=== PATIENT | male | born 1980 | race Caucasian/White ===

== ENCOUNTER 2018-09-12 23:57 | Emergency (ER) | payer MEDICAID ==
[2018-09-13 00:13] VITALS: RESP 18; O2SAT 99
[2018-09-13] MEDS ORDERED: Albuterol-Ipratrop 3 mg / 0.5 (3 ml) UD INH STA (01:19)
[2018-09-13] MEDS ORDERED: Albuterol-Ipratrop 3 mg / 0.5 (3 ml) UD ONE (01:37)
[2018-09-13 01:59] LABS: BASO % 0.8 % (0.0-2.0); EOS # 0.2 K/uL (0.0-0.7); EOS % 3.1 % (0.0-4.0); HEMOGLOBIN 14.6 g/dL (12.0-18.0); LYMPH # 1.5 K/uL (1.0-4.3); MEAN CELL VOLUME 94.2 fl (80.0-94.0); MEAN CORPUSCULAR HEMOGLOBIN 30.6 pg (27.0-31.0); MEAN CORPUSCULAR HGB CONC 32.5 g/dL (33.0-37.0); MEAN PLATELET VOLUME 8.7 fl (7.2-11.7); MONO # 0.5 K/uL (0.0-0.8); MONO % 9.9 % (0.0-10.0); NEUT # 2.9 K/uL (1.8-7.0); NEUT % 57.2 % (50.0-75.0); NRBC % 0.1 % (0.0-0.0); RBC 4.78 Mil/uL (4.40-5.90); RED CELL DISTRIBUTION WIDTH 14.1 % (11.5-14.5); WHITE BLOOD COUNT 5.1 K/uL (4.8-10.8)
[2018-09-13 02:07] LABS: ALB/GLOB RATIO 1.3 (1.0-2.1); ALBUMIN 4.2 g/dL (3.5-5.0); ALT/SGPT 41 U/L (21-72); AST/SGOT 26 U/L (17-59); BLOOD UREA NITROGEN 10 mg/dl (9-20); CALCIUM 9.2 mg/dL (8.4-10.2); GFR NON-AFRICAN AMERICAN > 60
[2018-09-13 02:23] LABS: BARBITURATES, UR NEGATIVE (NEGATIVE); BENZODIAZEPINES, UR NEGATIVE (NEGATIVE); OPIATES, UR NEGATIVE (NEGATIVE); PHENCYCLIDINE, UR NEGATIVE (NEGATIVE)
--- NOTE | 2018-09-13 04:04 | ED PDOC ---
HPI: SOB/CHF/COPD Time Seen by Provider: 09/13/18 00:55 Chief Complaint (Nursing): Shortness Of Breath History Per: Patient Additional Complaint(s): Pt. c/o dyspnea occuring only when he walks without chest pain x 2 days. Reports no alleviating factors. States symptoms resolve spontaneously. Denies fever, cough, hemoptysis, PND, leg pain, hx of DVT or PE, recent surgery, recent prolonged limb immobilization, illicit drug use. Past Medical History Reviewed: Historical Data, Nursing Documentation, Vital Signs Vital Signs: Last Vital Signs Temp 97.8 F 09/13/18 00:10 Pulse 58 L 09/13/18 00:10 Resp 18 09/13/18 01:45 BP 130/82 09/13/18 00:10 Pulse Ox 99 09/13/18 00:10 - Medical History PMH: Sleep Apnea Denies: Deep Vein Thrombosis, HTN, Hypercholesterolemia, Hyperlipidemia, Pulmonary Embolism - Surgical History Surgical History: No Surg Hx - Family History Family History: States: No Known Family Hx - Social History Drugs: Denies - Immunization History Hx Tetanus Toxoid Vaccination: No Hx Influenza Vaccination: No Hx Pneumococcal Vaccination: No - Home Medications Home Medications: Ambulatory Orders Medication Instructions Recorded Acetaminophen [Tylenol 325mg tab] 650 mg PO Q6 #30 tab 07/31/18 Albuterol HFA [Ventolin HFA 90 2 puff IH [id number] PRN #120 puff 09/13/18 mcg/actuation (8 g)] - Allergies Allergies/Adverse Reactions: Allergies Allergy/AdvReac Type Severity Reaction Status Date / Time No Known Allergies Allergy Verified 07/31/18 15:59 Wells Criteria for PE - Wells Criteria for Pulmonary Embolism Clinical Signs and Symptoms of DVT: No P.E is #1 Diagnosis, or Equally Likely: No Heart Rate >100: No Immobilization at least 3 days;Surgery previous 4 weeks: No Previous, objectively diagnosed PE or DVT: No Hemoptysis: No Malignancy w/treatment within 6 months, or palliative: No Total Score: 0 Review of Systems ROS Statement: Except As Marked, All Systems Reviewed And Found Negative Respiratory: Positive for: Shortness of Breath Physical Exam - Physical Exam Appears: Positive for: Well, Non-toxic, No Acute Distress Skin: Positive for: Normal Color, Warm. Negative for: Rash Eye Exam: Positive for: Normal appearance Cardiovascular/Chest: Positive for: Regular Rate, Rhythm Respiratory: Positive for: Normal Breath Sounds. Negative for: Respiratory Distress Gastrointestinal/Abdominal: Positive for: Soft. Negative for: Tenderness Extremity: Negative for: Calf Tenderness (b/l) Neurological/Psych: Positive for: Awake, Alert, Oriented (x3) - Laboratory Results Result Diagrams: 09/13/18 01:55 09/13/18 01:55 Lab Results: D-Dimer, Quantitative < 200 ng/mlDDU (0-230) 09/13/18 01:55 Troponin I < 0.0120 ng/mL (0.00-0.120) 09/13/18 01:55 Total Bilirubin 2.8 mg/dl (0.2-1.3) H 09/13/18 01:55 AST 26 U/L (17-59) 09/13/18 01:55 ALT 41 U/L (21-72) 09/13/18 01:55 Alkaline Phosphatase 64 U/L (38-126) 09/13/18 01:55 Total Protein 7.6 G/DL (6.3-8.2) 09/13/18 01:55 Albumin 4.2 g/dL (3.5-5.0) 09/13/18 01:55 Globulin 3.4 gm/dL (2.2-3.9) 09/13/18 01:55 Albumin/Globulin Ratio 1.3 (1.0-2.1) 09/13/18 01:55 - ECG ECG: Positive for: Interpreted By Nh ECG Rhythm: Positive for: Sinus Bradycardia. Negative for: ST/T Changes Rate: 58 O2 Sat by Pulse Oximetry: 99 - Radiology X-Ray: Interpreted by Nh (CXR) X-Ray Interpretation: No Acute Disease - Progress ED Course And Treament: Labs, albuterol neb, CXR, EKG ordered. On re-evaluation, pt. reports good relief of dyspnea. Pt. in no distress. Informed of results. Advised to f/u with [facility] for further evaluation but is to return to ED immediately if symptoms worsen. Disposition - Clinical Impression Clinical Impression: Dyspnea - Patient ED Disposition Is Patient to be Admitted: No - Disposition Referrals: [facility] [Outside] Disposition: Routine/Home Disposition Time: 04:02 Condition: IMPROVED Additional Instructions: FOLLOW UP WITH YOUR DOCTOR FOR FURTHER EVALUATION RETURN TO ED IMMEDIATELY IF SYMPTOMS WORSEN MODESTA GARCIA, thank you for letting us take care of you today. Your provider was Debby Srinivasan MD and you were treated for DIFFICULTY BREATHING. The emergency medical care you received today was directed at your acute symptoms. If you were prescribed any medication, please fill it and take as directed. It may take several days for your symptoms to resolve. Return to the Emergency Department if your symptoms worsen, do not improve, or if you have any other problems. Please contact your doctor or call one of the physicians/clinics you have been referred to that are listed on the Patient Visit Information form that is included in your discharge packet. Bring any paperwork you were given at discharge with you along with any medications you are taking to your follow up visit. Our treatment cannot replace ongoing medical care by a primary care provider outside of the emergency department. Thank you for allowing the [facility] team to be part of your care today. If you had an X-Ray or CT scan: A Radiologist will review the ED reading if any change in treatment is needed we will contact you. If you had a blood, urine, or wound culture: It will take several days for the results, if any change in treatment is needed we will contact you. If you had an STI test: It will take 48 hours for the results. Please call after 1 week if you have not heard back. Prescriptions: Albuterol HFA [Ventolin HFA 90 mcg/actuation (8 g)] 2 puff IH [id number] PRN #120 puff PRN Reason: Wheezing Instructions: Shortness of Breath (Dyspnea) (DC) Forms: [employer] (Kiswahili) Print Language: LUXEMBOURGISH
[2018-09-13 05:04] VITALS: BP 124/76; TEMP 97.7
[2018-09-13 06:26] VITALS: PULSE 58
--- NOTE | 2018-09-13 08:42 | RAD ---
Date of service: 09/13/2018 HISTORY: cough COMPARISON: No prior. TECHNIQUE: Chest PA and lateral views FINDINGS: LUNGS: No active pulmonary disease. PLEURA: No significant pleural effusion identified. No pneumothorax apparent. CARDIOVASCULAR: No aortic atherosclerotic calcification present. Normal cardiac size. No pulmonary vascular congestion. OSSEOUS STRUCTURES: No significant abnormalities. VISUALIZED UPPER ABDOMEN: Normal. OTHER FINDINGS: None. IMPRESSION: No acute cardiopulmonary disease appreciated.
--- NOTE | 2018-09-13 09:04 | CARD ---
APPROVED REPORT Date of service: 09/13/2018 EKG Measurement Heart [id number] <Conclusion> Sinus bradycardia Otherwise normal ECG
== END 2018-09-13 05:00 | disposition home or self-care (01) ==
LOC: H.ER 23:57
DX: R06.03 Acute respiratory distress (principal); J44.9 Chronic obstructive pulmonary disease, unspecified; Z79.899 Other long term (current) drug therapy

== ENCOUNTER 2018-09-25 03:38 | Emergency (ER) | payer MEDICAID, OTHER ==
[2018-09-25 04:08] VITALS: PULSE 64; RESP 18; TEMP 98.6; O2SAT 99
[2018-09-25 04:14] VITALS: BP 152/98
--- NOTE | 2018-09-25 05:01 | ED PDOC ---
HPI: Psych/Substance Abuse Time Seen by Provider: 09/25/18 03:54 Chief Complaint (Nursing): Psychiatric Evaluation Chief Complaint (Provider): depression History Per: Patient History/Exam Limitations: no limitations Onset/Duration Of Symptoms: Days Modifying Factor(s): None Additional Complaint(s): 38 yo M h/o HTN and sleep apnea presents to ED via EMS for 3weeks of depression. He reports he recently became homeless and since has been depressed He states he is unsure if he has been in the past. Pt currently denies SI/HI, visual or auditory hallucinations. Pt denies any other complaints at this time. Pt denies drug or alcohol use PMD: [facility] Past Medical History Reviewed: Historical Data, Nursing Documentation, Vital Signs Vital Signs: Last Vital Signs Temp 98.6 F 09/25/18 04:03 Pulse 64 09/25/18 04:03 Resp 18 09/25/18 04:03 BP 152/98 H 09/25/18 04:03 Pulse Ox 99 09/25/18 04:03 - Medical History PMH: HTN, Sleep Apnea Denies: Deep Vein Thrombosis, Hypercholesterolemia, Hyperlipidemia, Pulmonary Embolism - Family History Family History: States: Unknown Family Hx - Social History Alcohol: None Drugs: Denies - Immunization History Hx Tetanus Toxoid Vaccination: No Hx Influenza Vaccination: No Hx Pneumococcal Vaccination: No - Home Medications Home Medications: Ambulatory Orders Medication Instructions Recorded Acetaminophen [Tylenol 325mg tab] 650 mg PO Q6 #30 tab 07/31/18 Albuterol HFA [Ventolin HFA 90 2 puff IH [id number] PRN #120 puff 09/13/18 mcg/actuation (8 g)] - Allergies Allergies/Adverse Reactions: Allergies Allergy/AdvReac Type Severity Reaction Status Date / Time No Known Allergies Allergy Verified 09/25/18 04:08 Review of Systems Constitutional: Negative for: Fever Cardiovascular: Negative for: Chest Pain Respiratory: Negative for: Shortness of Breath Neurological: Negative for: Weakness Psych: Positive for: Depression. Negative for: Suicidal ideation Physical Exam - Reviewed Nursing Documentation Reviewed: Yes - Physical Exam Comments: GENERALIZED APPEARANCE: Patient is AAO x 3, in no acute distress. eating a sandwich SKIN: Warm, dry; (-) cyanosis. HEAD: (-) scalp swelling, (-) scalp tenderness. EYES: (-) conjunctival pallor, (-) scleral icterus, (-) nystagmus. ENMT: Mucous membranes moist. Airway patent: (-) stridor. NECK: (-) tenderness, (-) stiffness, (-) lymphadenopathy. CHEST AND RESPIRATORY: (-) rales, (-) rhonchi, (-) wheezes; breath sounds equalbilaterally. HEART AND CARDIOVASCULAR: (-) irregularity; (-) murmur, (-) gallop. ABDOMEN AND GI: Soft; (-) tenderness. EXTREMITIES: (-) deformity. NEURO AND PSYCH: Mental status as above, (-) apparent hallucinations ordelus ions. Affect: flat. Memory: fully intact last dipper grossly intact;Pupils reactive; (-) facial asymmetry; tongue anduvula midline. Strength: Symmetric. - ECG O2 Sat by Pulse Oximetry: 99 Medical Decision Making Medical Decision Makin initial eval 38 yo M with depression d/t newly being homeless -- crisis eval -- pt with elevated BP, asymptomatic at this time, reports he has not been taking his BP meds 0558 pt seen and cleared by dr parth cottrell, diagnosis adjustment disorder pt is stable for dc discussed diagnosis, treatment, return precautions and f/u with pt who is understanding, in agreement and stable for dc Disposition - Clinical Impression Clinical Impression: Adjustment disorder - Patient ED Disposition Is Patient to be Admitted: No Counseled Patient/Family Regarding: Studies Performed, Diagnosis, Need For Followup - Disposition Referrals: [facility] [Outside] Disposition: Routine/Home Disposition Time: 06:00 Condition: STABLE Additional Instructions: Thank you for letting us take care of you today. You were treated for adjustment disorder. The emergency medical care you received today was directed at your acute symptoms. If you were prescribed any medication, please fill it and take as directed. It may take several days for your symptoms to resolve. Return to the Emergency Department if your symptoms worsen, do not improve, or if you have any other problems. Please contact your doctor in 2 days for re-evaluation and follow up / or call one of the physicians/clinics you have been referred to that are listed on the Patient Visit Information form that is included in your discharge packet. Bring any paperwork you were given at discharge with you along with any medications you are taking to your follow up visit. Our treatment cannot replace ongoing medical care by a primary care provider (PCP) outside of the emergency department. Instructions: Adjustment Disorder Forms: [facility] (Syriac) Print Language: MACEDONIAN - POA Present On Arrival: None
== END 2018-09-25 07:10 | disposition home or self-care (01) ==
LOC: H.ER 03:38
DX: F43.20 Adjustment disorder, unspecified (principal); I10 Essential (primary) hypertension; Z59.0 Homelessness; Z00.8 Encounter for other general examination

== ENCOUNTER 2018-10-03 02:23 | Emergency (ER) | payer MEDICAID, OTHER ==
[2018-10-03 02:25] VITALS: BMI 21.5
[2018-10-03 02:40] VITALS: BP 144/93; PULSE 62; RESP 18; TEMP 98.6; O2SAT 100
--- NOTE | 2018-10-03 03:39 | ED PDOC ---
HPI: Male Pain Time Seen by Provider: 10/03/18 02:35 Chief Complaint (Nursing): Male Genitourinary Chief Complaint (Provider): Male Genitourinary History Per: Patient History/Exam Limitations: no limitations Onset/Duration Of Symptoms: Days (x2 weeks) Current Symptoms Are (Timing): Still Present Additional Complaint(s): 38 undomiciled y/o male presents to the ED for evaluation of frequent urination for the past two weeks. Patient denies any other complaint including dysuria, abdominal pain, hematuria, vomiting and fever. Of note, patient was seen at [facility] a couple of days ago for evaluation of bronchitis and discharged home. Patient did not mention frequent urination during that visit as per chart. Patient reports someone from "[facility]" called him and told him to come give more blood at [facility]. PMD: no provider Past Medical History Reviewed: Historical Data, Nursing Documentation, Vital Signs Vital Signs: Last Vital Signs Temp 98.6 F 10/03/18 02:38 Pulse 62 10/03/18 02:38 Resp 18 10/03/18 02:38 BP 144/93 H 10/03/18 02:38 Pulse Ox 100 10/03/18 02:38 - Medical History PMH: HTN, Sleep Apnea Denies: Diabetes, Deep Vein Thrombosis, Hepatitis, HIV, Hypercholesterolemia, Hyperlipidemia, Pulmonary Embolism, Seizures, Sexually Transmitted Disease - Surgical History Surgical History: No Surg Hx - Family History Family History: States: Unknown Family Hx - Living Arrangements Living Arrangements: Other (undomiciled) - Immunization History Hx Tetanus Toxoid Vaccination: No Hx Influenza Vaccination: No Hx Pneumococcal Vaccination: No - Home Medications Home Medications: Ambulatory Orders Medication Instructions Recorded Enalapril Maleate 5 mg PO DAILY 10/01/18 - Allergies Allergies/Adverse Reactions: Allergies Allergy/AdvReac Type Severity Reaction Status Date / Time No Known Allergies Allergy Verified 10/01/18 01:33 Review of Systems ROS Statement: Except As Marked, All Systems Reviewed And Found Negative Constitutional: Negative for: Fever Gastrointestinal: Negative for: Vomiting, Abdominal Pain Genitourinary Male: Positive for: Frequency. Negative for: Dysuria, Hematuria Physical Exam - Reviewed Nursing Documentation Reviewed: Yes Vital Signs Reviewed: Yes - Physical Exam Appears: Positive for: No Acute Distress. Negative for: Uncomfortable (patient found sleeping in bed comfortable upon examination) Head Exam: Positive for: ATRAUMATIC Neurological/Psych: Positive for: Awake, Alert, Oriented (x3), Other (calm and cooperative). 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 -- ED Urine dipstick is unremarkable. Patient to be instructed to follow up with PMD for further management of symptoms Scribe Attestation: Documented by Silas Ashley, acting as a scribe Rani Alexander MD. Provider Scribe Attestation: All medical record entries made by the Scribe were at my direction and personally dictated by me. I have reviewed the chart and agree that the record accurately reflects my personal performance of the history, physical exam, medical decision making, and the department course for this patient. I have also personally directed, reviewed, and agree with the discharge instructions and disposition. Disposition - Clinical Impression Clinical Impression: Dysuria - Patient ED Disposition Is Patient to be Admitted: No Doctor Will See Patient In The: Office Counseled Patient/Family Regarding: Studies Performed, Diagnosis, Need For Followup - Disposition Referrals: [facility] [Outside] Disposition: Routine/Home Disposition Time: 05:07 Condition: GOOD Additional Instructions: MODESTA GARCIA, thank you for letting us take care of you today. Your provider was Miguel Alexander MD and you were treated for MALE GENITOURINARY. The emergency medical care you received today was directed at your acute symptoms. If you were prescribed any medication, please fill it and take as directed. It may take several days for your symptoms to resolve. Return to the Emergency Department if your symptoms worsen, do not improve, or if you have any other problems. Please contact your doctor or call one of the physicians/clinics you have been referred to that are listed on the Patient Visit Information form that is included in your discharge packet. Bring any paperwork you were given at discharge with you along with any medications you are taking to your follow up visit. Our treatment cannot replace ongoing medical care by a primary care provider outside of the emergency department. Thank you for allowing the [facility] team to be part of your care today. Instructions: Dysuria, Adult (DC)
== END 2018-10-03 05:52 | disposition home or self-care (01) ==
LOC: H.ER 02:23
DX: R30.0 Dysuria (principal)

== ENCOUNTER 2018-10-04 01:30 | Emergency (ER) | payer OTHER ==
[2018-10-04 01:30] VITALS: BMI 21.5
[2018-10-04 01:40] VITALS: BP 143/96; PULSE 64; RESP 18; TEMP 98.2; O2SAT 98
--- NOTE | 2018-10-04 02:01 | ED PDOC ---
HPI: General Adult Time Seen by Provider: 10/04/18 01:44 Chief Complaint (Nursing): Medical Clearance Chief Complaint (Provider): Medical Clearance History Per: Patient History/Exam Limitations: no limitations Onset/Duration Of Symptoms: Persistent Current Symptoms Are (Timing): Still Present Additional Complaint(s): 38 year old male with medical history of hypertension, and multiple visits to the ER this month, presents to the emergency department requesting medications for his persistent urine frequency. Patient was evaluated yesterday for similar complaints with (-) urine dipstick findings. He denies any abdominal pain, hemautria, dysuria, chest pain, or shortness of breath. Of note, patient is recently homeless and has been having difficulty with acceptance into local shelters. At present, B/P is elevated, however, patient is asymptomatic and reports noncompliance with hypertensive medications as he "cannot find them". PCP: none provided Past Medical History Reviewed: Historical Data, Nursing Documentation, Vital Signs Vital Signs: Last Vital Signs Temp 98.2 F 10/04/18 01:37 Pulse 64 10/04/18 01:37 Resp 18 10/04/18 01:37 BP 143/96 H 10/04/18 01:37 Pulse Ox 98 10/04/18 01:37 - Medical History PMH: HTN, Sleep Apnea Denies: Diabetes, Deep Vein Thrombosis, Hepatitis, HIV, Hypercholesterolemia, Hyperlipidemia, Pulmonary Embolism, Seizures, Sexually Transmitted Disease - Family History Family History: States: Unknown Family Hx - Immunization History Hx Tetanus Toxoid Vaccination: No Hx Influenza Vaccination: No Hx Pneumococcal Vaccination: No - Home Medications Home Medications: Ambulatory Orders Medication Instructions Recorded Enalapril Maleate 5 mg PO DAILY 10/01/18 - Allergies Allergies/Adverse Reactions: Allergies Allergy/AdvReac Type Severity Reaction Status Date / Time No Known Allergies Allergy Verified 10/01/18 01:33 Review of Systems ROS Statement: Except As Marked, All Systems Reviewed And Found Negative Cardiovascular: Negative for: Chest Pain Respiratory: Negative for: Shortness of Breath Gastrointestinal: Negative for: Abdominal Pain Physical Exam - Reviewed Nursing Documentation Reviewed: Yes Vital Signs Reviewed: Yes - Physical Exam Comments: GENERAL APPEARANCE: Patient is awake, alert, oriented x 3, in no acute distress, dishelved, large bag with him SKIN: Warm, dry; (-) cyanosis. EYES: (-) conjunctival pallor. ENMT: Mucous membranes _moist. Airway patent: (-) stridor. Pharynx: (-) swelling, (-) erythema. NECK: (-) tenderness, (-) stiffness, (-) lymphadenopathy. CHEST AND RESPIRATORY: (-) wheezing; (-) rales, (-) rhonchi, (-) rub; breath sounds equal bilaterally. HEART AND CARDIOVASCULAR: (-) irregularity; (-) murmur, (-) gallop. ABDOMEN AND GI: Soft; (-) tenderness. EXTREMITIES: (-) deformity, (-) edema. NEURO AND PSYCH: Mental status as above; (-) focal findings. - ECG O2 Sat by Pulse Oximetry: 98 (RA) Pulse Ox Interpretation: Normal Medical Decision Making Medical Decision Making: Time: 0153 Initial Plan: ED visit (10/03/18) reviewed: urine dip shows (-) signs of infection. Pt has been seen multiple times this month here and at [facility] [place] with different complaints, and negative work ups. Tylenol PO. Patient is medically stable and requires no further treatment in the ED at this time. Patient will be discharged and provided with instructions for follow up with [facility] and information regarding homeless shelters. Counseling was provided and all questions were answered regarding diagnosis. There is agreement to discharge plan. Return if symptoms persist or worsen. Clinical Impression: malingerer Scribe Attestation: Documented by Jany Barahona, acting as a scribe for Paul Gomez PA-C. Provider Scribe Attestation: All medical record entries made by the Scribe were at my direction and personally dictated by me. I have reviewed the chart and agree that the record accurately reflects my personal performance of the history, physical exam, medical decision making, and the department course for this patient. I have also personally directed, reviewed, and agree with the discharge instructions and disposition. Disposition - Clinical Impression Clinical Impression: Malingerer - Patient ED Disposition Is Patient to be Admitted: No Counseled Patient/Family Regarding: Diagnosis - Disposition Referrals: at [place] [Outside] Disposition: Routine/Home Disposition Time: 01:55 Condition: STABLE Additional Instructions: Please follow up with the [place] clinic as listed for further care. We have also given you [facility] information to follow up with. Instructions: General (DC) Forms: [facility] [place] (Sinhala) Print Language: CHINESE - POA Present On Arrival: None
== END 2018-10-04 02:15 | disposition home or self-care (01) ==
LOC: H.ER 01:30
DX: Z76.5 Malingerer [conscious simulation] (principal); Z59.0 Homelessness; I10 Essential (primary) hypertension; Z91.19 Patient's noncompliance with other medical treatment and regimen